=== PATIENT | female | born 1965 | race African-American/Black ===

== ENCOUNTER → 2018-04-07 | Outpatient (CLI) | payer BC, OTHER ==
[~2018-04-07] MED LIST: CALCIUM 600MG+D1 TAB PO; NAPROSYN 2250 MG/TAB PO; PRENATAL PLUS; STOOL SOFTENER100 M2 PO; ZYRTEC ALLERGY10 MG PO
== END ==
LOC: COL.RAD 12:52
DX: M48.061 Spinal stenosis, lumbar region without neurogenic claudication (principal); M51.16 Intervertebral disc disorders with radiculopathy, lumbar region
CPT/HCPCS: A9585